=== PATIENT | female | born 1985 | race Caucasian/White ===

== ENCOUNTER 2022-10-12 22:55 | Outpatient (CLI) | payer MEDICAID | END 2022-10-12 23:59 | disposition critical access hospital (66) | LOC: EMS 22:55 | DX: F10.129 Alcohol abuse with intoxication, unspecified (principal); R11.10 Vomiting, unspecified | CPT/HCPCS: A0425; A0427; A0999 ==

== ENCOUNTER 2022-10-12 23:25 | Emergency (ER) | payer MEDICAID ==
--- NOTE | 2022-10-13 00:12 | ED Physician Documentation ---
History of Present Illness - Stated complaint Stated Complaint: ETOH - Chief complaint Chief Complaint: MHE - History obtained from History obtained from: Patient - Additonal information Additional information: Brought in by ambulance. HPI is from EMS as well as from the patient. Patient presents requesting detox from alcohol. She tells me she drinks moonshine on a daily basis and estimates that she was last sober approximately 2 years ago. She denies drug use. She says she has never been to a detox facility before for alcohol. She received 4 mg Zofran by EMS IV on route. She is calm and cooperative on my HPI/ROS, but reticent to discuss much depth regarding her chief complaint. She says "it is very hard for me to talk about", but she expresses understanding when I explain that I do need some information in order to provide her with the best options for treatment of her chief concern/complaint. Review of Systems GI: reports: Nausea, Vomiting. denies: Abdominal Pain : denies: Now [facility] PAST MEDICAL HISTORY - Past Medical History Past Medical History: No - Present Medications Home Medications: Ambulatory Orders Medication Instructions Recorded Confirmed Doxycycline [Vibramycin] 100 mg PO BID 07/30/13 07/30/13 Ondansetron [Zofran] 4 mg PO Q6H PRN 07/30/13 07/30/13 No Known Home Medications 10/12/22 10/12/22 - Allergies Allergies/Adverse Reactions: Allergies Allergy/AdvReac Type Severity Reaction Status Date / Time nickel AdvReac Intermediate Rash Uncoded 10/13/22 08:57 titanium AdvReac Intermediate Rash Uncoded 10/13/22 08:57 - Social History Does the pt drink ETOH?: Yes ETOH Use: Liquor Does the pt have substance abuse?: No PD ED PE NORMAL - Vitals Vital signs reviewed: Yes - General General: Alert and oriented X 3, No acute distress, Well developed/nourished, Other (initially poor eye contact, but improves during H+P. dry-heaving towards end of physical exam) - HEENT HEENT: Atraumatic, PERRL, EOMI, Moist mucous membranes - Neck Neck: Supple, no meningeal sign - Cardiac Cardiac: RRR, No murmur - Respiratory Respiratory: No respiratory distress, Clear bilaterally - Abdomen Abdomen: Soft, Non tender - Neuro Neuro: Alert and oriented X 3 Eye Opening: To Voice Motor: Obeys Commands Verbal: Oriented GCS Score: 14 Results - Vitals Vitals: Oxygen O2 Source Room air - Labs Labs: Laboratory Tests 10/13/22 10/13/22 10/13/22 01:00 01:00 01:00 WBC 8.8 RBC 4.16 L Hgb 13.4 Hct 41.0 MCV 98.6 MCH 32.2 H MCHC 32.7 RDW 13.5 Plt Count 296 MPV 9.2 Neut # (Auto) 5.3 Lymph # (Auto) 2.8 [place] # (Auto) 0.6 Eos # (Auto) 0.1 Baso # (Auto) 0.0 Absolute Nucleated RBC 0.00 Nucleated RBC % 0.0 Sodium 140 Potassium 3.7 Chloride 103 Carbon Dioxide 25 Anion Gap 12.0 BUN 13 Creatinine 0.5 Estimated GFR (MDRD) 140 Glucose 97 Calcium 8.4 L Total Bilirubin 0.5 AST 14 ALT 12 Alkaline Phosphatase 57 Total Protein 7.1 Albumin 4.0 Globulin 3.1 Albumin/Globulin Ratio 1.3 Lipase 28 TSH 0.70 Urine HCG, Qual Salicylates < 6.0 Urine Opiates Screen Ur Oxycodone Screen Urine Methadone Screen Ur Propoxyphene Screen Acetaminophen < 10 L Ur Barbiturates Screen Ur Tricyclics Screen Ur Phencyclidine Scrn Ur Amphetamine Screen U Methamphetamines Scrn U Benzodiazepines Scrn Urine Cocaine Screen U Cannabinoids Screen Ethyl Alcohol 108.2 10/13/22 04:12 WBC RBC Hgb Hct MCV MCH MCHC RDW Plt Count MPV Neut # (Auto) Lymph # (Auto) [place] # (Auto) Eos # (Auto) Baso # (Auto) Absolute Nucleated RBC Nucleated RBC % Sodium Potassium Chloride Carbon Dioxide Anion Gap BUN Creatinine Estimated GFR (MDRD) Glucose Calcium Total Bilirubin AST ALT Alkaline Phosphatase Total Protein Albumin Globulin Albumin/Globulin Ratio Lipase TSH Urine HCG, Qual NEGATIVE Salicylates Urine Opiates Screen NEGATIVE Ur Oxycodone Screen NEGATIVE Urine Methadone Screen NEGATIVE Ur Propoxyphene Screen NEGATIVE Acetaminophen Ur Barbiturates Screen NEGATIVE Ur Tricyclics Screen NEGATIVE Ur Phencyclidine Scrn NEGATIVE Ur Amphetamine Screen NEGATIVE U Methamphetamines Scrn NEGATIVE U Benzodiazepines Scrn NEGATIVE Urine Cocaine Screen NEGATIVE U Cannabinoids Screen POSITIVE H Ethyl Alcohol PD Medical Decision Making - ED course Complexity details: reviewed results, re-evaluated patient, considered differential, d/w patient ED course: Patient presents to ED seeking inpatient detox for alcoholism. She had episodic n/v during ED stay that responded to IV zofran (although required repeat dose) and IV lorazepam (also given repeat dose). She did not exhibit signs/symptoms suggestive of severe withdrawal (such as hallucinations, overt tremulousness, diaphoresis, unstable vital signs). During ED stay, I provided her the number to contact [facility]; she indicates that the conversation was productive and she was told they will likely be able to admit patient to their facility later this morning. She is observed in ED for several hours before being discharged to the waiting room. No concerning findings on CBC, ER abdominal panel, TSH. Serum etoh is 108, UDS positive for canabinoids only. Departure - Departure Disposition: 01 Home, Self Care Clinical Impression: Alcoholism Condition: Good Instructions: ED Withdrawal Alcohol, ED Alcohol Abuse Comments: Go to the [facility] stabilization center in [place] as per their instructions. [address], [place] [address] Discharge Date/Time: 10/13/22 05:44
[2022-10-13] MEDS ORDERED: ONDANSETRON 4 MG/2 ML VIAL IVP STA ×2 (00:30→02:47)
[2022-10-13] MEDS ORDERED: SODIUM CHLORIDE 0.9% 1,000 ML IV STA ×2 (00:30→02:47)
[2022-10-13] MEDS ORDERED: LORazepam 2 MG/ML VIAL IVP STA ×2 (00:44→02:47)
[2022-10-13 01:09] LABS: BASOPHILS % (AUTO) 0.5 %; EOSINOPHILS # (AUTO) 0.1 10^3/uL (0.0-0.7); EOSINOPHILS % (AUTO) 0.9 %; HGB - HEMOGLOBIN 13.4 g/dL (12.0-16.0); LYMPHOCYTES # (AUTO) 2.8 10^3/uL (1.5-3.5); LYMPHOCYTES % (AUTO) 31.2 %; MEAN CORPUSCULAR HEMOGLOBIN 32.2 pg (27.0-31.0); MEAN CORPUSCULAR HGB CONC 32.7 g/dL (32.0-36.0); MEAN CORPUSCULAR VOLUME 98.6 fL (81.0-99.0); MEAN PLATELET VOLUME 9.2 fL (7.9-10.8); MONOCYTES # (AUTO) 0.6 10^3/uL (0.0-1.0); MONOCYTES % (AUTO) 6.9 %; NEUTROPHILS # (AUTO) 5.3 10^3/uL (1.5-6.6); NEUTROPHILS % (AUTO) 60.3 %; PLT - PLATELET COUNT 296 10^3/uL (130-450); RED BLOOD COUNT 4.16 10^6/uL (4.20-5.40); RED CELL DISTRIBUTION WIDTH 13.5 % (12.0-15.0); WHITE BLOOD COUNT 8.8 x10^3/uL (4.8-10.8)
[2022-10-13 01:27] LABS: ACETAMINOPHEN < 10 ug/mL (10-30); ALBUMIN/GLOBULIN RATIO 1.3 (1.0-2.2); ALKALINE PHOSPHATASE 57 IU/L (42-121); ALT ALANINE AMINOTRANSFERASE 12 IU/L (10-60); AST ASPARTATE AMINOTRANSFERASE 14 IU/L (10-42); BILIRUBIN,TOTAL 0.5 mg/dL (0.2-1.0); BUN - BLOOD UREA NITROGEN 13 mg/dL (6-20); CALCIUM 8.4 mg/dL (8.5-10.3); CARBON DIOXIDE - CO2 25 mmol/L (21-32); CHLORIDE 103 mmol/L (101-111); CREATININE 0.5 mg/dL (0.4-1.0); ETOH - ETHANOL 108.2 mg/dL; GFR - MDRD 140 (>89); GLUCOSE 97 mg/dL (70-100); LIPASE 28 U/L (22-51); POTASSIUM 3.7 mmol/L (3.5-5.0); SALICYLATE < 6.0 mg/dL; SODIUM 140 mmol/L (135-145); TOTAL PROTEIN 7.1 g/dL (6.7-8.2)
[2022-10-13 04:16] VITALS: BP 135/91
[2022-10-13 04:18] LABS: MUDS CUTOFF CONCENTRATIONS CUTOFF CONC BELOW:
[2022-10-13 04:21] LABS: HCG UR QUAL NEGATIVE
[2022-10-13 04:29] LABS: AMPHETAMINE SCREEN,URINE NEGATIVE (NEGATIVE); BARBITURATE SCREEN,UR NEGATIVE (NEGATIVE); BENZODIAZEPINES SCREEN, URINE NEGATIVE (NEGATIVE); COCAINE SCREEN URINE NEGATIVE (NEGATIVE); METHADONE SCREEN, URINE NEGATIVE (NEGATIVE); METHAMPHETAMINES SCREEN, URINE NEGATIVE (NEGATIVE); OPIATE SCREEN, URINE NEGATIVE (NEGATIVE); OXYCODONE SCREEN, URINE NEGATIVE (NEGATIVE); PROPOXYPHENE SCREEN, URINE NEGATIVE (NEGATIVE); THC CANNABINOID SCREEN, URINE POSITIVE (NEGATIVE); TRICYCLIC ANTIDEPRESSANT,URINE NEGATIVE (NEGATIVE)
[2022-10-13] MEDS ORDERED: ONDANSETRON ODT 4 MG Prepack 2 TL PRN (05:27)
== END 2022-10-13 05:44 | disposition home or self-care (01) ==
LOC: MERGE 23:25 → ED 23:25
DX: F10.20 Alcohol dependence, uncomplicated (principal); Y90.5 Blood alcohol level of 100-119 mg/100 ml
CPT/HCPCS: 36415; 80053; 80306; 80307; 80320; 80329; 81025; 83690; 84443; 85025; 96361; 96374; 96375; 96376; 99284